=== PATIENT | female | born 1935 | race Caucasian/White ===

== ENCOUNTER 2024-11-14 16:44 | Emergency (ER) | payer MEDICARE, SELFPAY ==
[2024-11-14 16:52] VITALS: BP 147/68; PULSE 92; RESP 16; TEMP 36.9; O2SAT 98
--- NOTE | 2024-11-14 17:33 | ED.EXTPRO ---
HPI - Extremity Problem General Chief complaint: Extremity Injury, Lower Stated complaint: Left Leg Pain Time Seen by Provider: 11/14/24 17:00 Source: patient, family and RN notes reviewed Mode of arrival: ambulatory Limitations: no limitations History of Present Illness HPI Narrative: 89-year-old female presents Express Care complaining of bilateral leg swelling and left leg pain. Patient stated she woke up this morning with excruciating leg pain through left lower extremity. Patient reports she feels a twisting and stabbing sensation to her left lower leg that comes and goes. Patient also noticed increased bilateral leg swelling to her lower extremities. Patient denies any chest pain, shortness of breath, dizziness, lightheadedness, or any injury to her lower extremities, or any falls. Patient was recently at a bioprocessing manufacturing technician's office this morning shoulder about her symptoms and they told her to go get an x-ray and ultrasound done on her left lower leg. Patient has a history of TIAs concurrently takes Plavix and aspirin for it. Patient has a history of hypertension hyperlipidemia but denies any history of heart attacks, heart failure. Patient denies any history of blood clots. Related Data Home Medications ?Medication ?Instructions ?Recorded ?Confirmed ?Last Taken ?Type amlodipine 5 mg tablet mg 11/14/24 Unknown History bimatoprost 0.01 % eye drops drp 11/14/24 Unknown History (Lumigan) estradiol 1.25 gram/actuation 11/14/24 Unknown History (0.06%) transdermal gel pump hydroxychloroquine 200 mg tablet mg PO 11/14/24 Unknown History losartan 100 tablet 11/14/24 Unknown History mg-hydrochlorothiazide 25 mg tablet mirabegron 50 mg tablet,extended mg PO 11/14/24 Unknown History release 24 hr omeprazole 40 mg capsule,delayed mg 11/14/24 Unknown History release potassium chloride 10 mEq meq PO 11/14/24 Unknown History tablet,extended release spironolactone 25 mg tablet mg 11/14/24 Unknown History Allergies Allergy/AdvReac Type Severity Reaction Status Date / Time Iodinated Contrast Media Allergy Intermediate Rash Verified 11/14/24 17:09 ciprofloxacin Allergy Unknown Rash Verified 01/21/19 13:18 lisinopril AdvReac Unknown Cough Verified 01/21/19 13:18 Review of Systems Review of Systems: CONSTITUTIONAL: Denies fever, chills, or sweats. EYES: Denies visual changes, redness, or discharge. ENT: Denies rhinorrhea, congestion, sore throat, or otalgia. CARDIOVASCULAR: Denies chest pain, palpitations, lightheadedness, syncope, orthopnea, dizziness,. Positive for edema. RESPIRATORY: Denies cough or dyspnea. GASTROINTESTINAL: Denies abdominal pain, nausea, vomiting, or diarrhea. GENITOURINARY: Denies dysuria or hematuria. SKIN: Denies rash or itching. MUSCULOSKELETAL: Denies back pain, joint pain, or myalgia. Positive for left lower leg pain. NEUROLOGIC: Denies headache, numbness, or weakness. PSYCHIATRIC: Denies anxiety or depression. All other systems reviewed are negative, except as documented in HPI. PMFSH Comments At the time of my signature, I reviewed and agree with the nursing past medical, surgical, social, and family history. There is no relevant family history pertinent to the patient complaint. Exam Narrative: GENERAL: This is a well-nourished, well-developed adult, in no apparent distress. They are non ill-appearing, nontoxic appearing. HEAD: normocephalic, atraumatic. EYES: Sclera clear/white. Conjunctiva normal. Vision is grossly intact. Extraocular movements intact EARS: External ears normal, Hearing grossly intact. NOSE: External nose normal THROAT: Mucous membranes moist, NECK: Neck supple, CARDIOVASCULAR: Regular rate and rhythm without gallops, clicks, or rubs. S1-S2 present. There is a mid systolic murmur heard best at the left upper sternal border. 3/6. RESPIRATORY: Clear to auscultation. Breath sounds equal bilaterally. No wheezes, rales, or rhonchi. Respiratory rate normal, respiratory effort nonlabored, no respiratory distress SKIN: warm, Dry, intact with no suspicious lesions or rash, good texture and turgor. NEURO: awake, alert, and oriented to person, place and time. There were no obvious focal neurologic abnormalities. EXTREMITIES: Bilateral lower legs: There is pitting edema present to the bilateral lower extremities below the knee. Edema is 2+. No palpable cords bilaterally. No tenderness to palpation to the lower extremities. No unilateral swelling. Swelling is symmetrical. Pedal pulses 2+ and palpable, posterior tibialis pulse 2 +palpable. Extremities are warm, dry, pink. Capillary refill less than 2 seconds. No obvious deformity, bruising, injury, or redness redness. Varicosities present bilaterally. No tenderness to palpation to the deep vein system. BACK: Nontender without deformity. Course Course Emergency Course: Portions of this record may have been created with voice recognition software Level of Care: Express Care Visit Vital Signs Vital signs: Vital Signs Temperature 98.5 F 11/14/24 16:52 Pulse Rate 92 11/14/24 16:52 Respiratory Rate 16 11/14/24 16:52 Blood Pressure 147/68 H 11/14/24 16:52 Pulse Oximetry 98 11/14/24 16:52 Oxygen Delivery Room Air 11/14/24 16:52 Temperature 98.5 F 11/14/24 16:52 Pulse Rate 92 11/14/24 16:52 Respiratory Rate 16 11/14/24 16:52 Blood Pressure 147/68 H 11/14/24 16:52 Pulse Oximetry 98 11/14/24 16:52 Oxygen Delivery Room Air 11/14/24 16:52 Reviewed Transfer Transfered to: [facility] Transportation: Other (Private vehicle) Transfer rationale: Higher level care, rule out DVT, further evaluation and management Accepting physician: Dr. Heart MDM - Extremity (Nontraumatic) MDM Narrative Medical decision making narrative: Wells score of 1, cannot rule out DVT. Although patient's legs have bilateral swelling, patient reports all the pain is in her left leg. No evidence of ischemic legs. Patient has no chest pain or shortness of breath. Patient is in no apparent distress. There is no bony tenderness or any evidence of injury, no x-rays indicated. Given patient's symptoms, it is recommend the patient seek a higher level care and proceed immediately to the emergency department for further evaluation and management of her symptoms. Patient is agreeable to go to [facility] ER. Call over to [facility] ER and spoke with Flor PHILLIPS whose wear this patient and Dr. Heart accepted this patient for transfer. Patient advised to remain NPO proceed immediately to the ER. Son stated she will take his mother to the hospital via private vehicle. Differential Diagnosis Differential diagnosis: Likely lower extremity edema, deep vein thrombosis of lower extremity and other (Congestive heart failure, venous insufficiency, restless legs, muscle spasms) Critical Care Time Critical Care Time Critical Care Time: No Discharge Plan Discharge Clinical Impression: Bilateral edema of lower extremity, Lower extremity pain, left Patient Disposition: Acute Care Hospital Condition: Stable Patient Language: Belarusian Prescriptions: No Action potassium chloride 10 mEq tablet extended release PO amlodipine 5 mg tablet omeprazole 40 mg capsule,delayed release(DR/EC) spironolactone 25 mg tablet losartan-hydrochlorothiazide 100-25 mg tablet hydroxychloroquine 200 mg tablet PO estradiol 1.25 gram/actuation gel in metered-dose pump Lumigan 0.01 % drops mirabegron 50 mg tablet extended release 24 hr PO Follow-up/Referrals: Sha,Arsen Mitchell MD [Primary Care Provider] - Time of Disposition: 17:30
== END 2024-11-14 17:41 | disposition short-term general hospital (02) ==
PROVIDERS: PCP Internal Medicine Endocrinology, Diabetes & Metabolism
DX: R60.0 Localized edema (principal); M79.605 Pain in left leg; I10 Essential (primary) hypertension; E78.5 Hyperlipidemia, unspecified; Z79.899 Other long term (current) drug therapy; Z79.82 Long term (current) use of aspirin
CPT/HCPCS: 99202; G0463